=== PATIENT | male | born 1985 | race Two or more races ===

== ENCOUNTER 2023-08-30 10:36 | Emergency (ER) | payer OTHER ==
[~2023-08-30] VITALS: Ht 167.6 cm; Wt 72.6 kg
[2023-08-30] MEDS ORDERED: BENZONATATE 100 MG CAPSULE PO ONE (11:45)
[2023-08-30 12:37] LABS: HEMATOCRIT 42.4 % (39.0-48.0); HEMOGLOBIN 14.6 g/dL (13-16.00); MEAN CORPUSCULAR HEMOGLOBIN 29.9 pg (27.00-32.0); MEAN CORPUSCULAR HGB CONC 34.4 g/dl (32.0-36.0); PLATELET COUNT 245 K/uL (150-450); RED BLOOD COUNT 4.87 M/uL (4.00-6.00); RED CELL DISTRIBUTION WIDTH 13.8 % (11.5-14.5)
== END 2023-08-30 13:55 | disposition home or self-care (01) ==
LOC: ER 10:37
PROVIDERS: General Practice
DX: R05.8 Other specified cough (principal); J00 Acute nasopharyngitis [common cold]; Z20.822 Contact with and (suspected) exposure to COVID-19